=== PATIENT | male | born 1945 | race African-American/Black ===

== ENCOUNTER 2018-10-22 12:46 | Inpatient (IN) | payer MEDICARE, MEDICAID ==
[~2018-10-22] VITALS: Ht 175.3 cm; Wt 79.4 kg
[2018-10-22 14:16] LABS: HEMATOCRIT. 46.1 % (42.0-52.0); MEAN CORPUSCULAR HEMOGLOBIN 30.1 pg (28.0-32.0); MEAN CORPUSCULAR VOLUME 92.4 fL (80.0-94.0); MEAN PLATELET VOLUME 10.1 fl (7.4-10.4); PLATELET 179 x1000/uL (130-400); RED BLOOD CELL COUNT 4.98 mill/uL (4.7-6.1)
[2018-10-22 14:24] LABS: CHLORIDE 104 mEq/L (98-107)
[2018-10-22 14:42] LABS: PLATELET ESTIMATE NORMAL
[2018-10-22] MEDS ORDERED: MAGNESIUM/ALUMINUM HYDROXIDE/SIMETHICONE 30ML UDC PO PRN (19:00)
[2018-10-22] MEDS ORDERED: GUAIFENESIN 200MG/10ML SUGAR FREE UDC PO PRN (19:00)
[2018-10-22] MEDS ORDERED: IPRATROPIUM/ALBUTEROL 0.5-3(2.5)MG/3ML NEB HHN PRN (19:00)
[2018-10-22] MEDS ORDERED: MAGNESIUM HYDROXIDE 400MG/5ML 30ML UDC PO PRN (19:00)
[2018-10-22] MEDS ORDERED: ONDANSETRON HCL 4MG/2ML INJ IV PRN (19:00)
[2018-10-22] MEDS ORDERED: ACETAMINOPHEN 325MG TABLET PO PRN (19:00)
[2018-10-22] MEDS ORDERED: DIPHENHYDRAMINE 50MG/ML VIAL IV PRN (19:00)
[2018-10-22] MEDS: ACETAMINOPHEN WITH CODEINE 300/30MG TABLET PO PRN (21:40)
[2018-10-22 22:48] VITALS: BP 145/95
[2018-10-22] MEDS: CARVEDILOL 6.25 MG TABLET PO SCH (23:32)
[2018-10-22] MEDS: TRAZODONE HCL 50MG TABLET PO SCH (23:32)
[2018-10-22] MEDS: FAMOTIDINE 20MG TABLET PO SCH (23:32)
[2018-10-22] MEDS: ENOXAPARIN 80MG/0.8ML SYR SUBCUT SCH (23:32)
[2018-10-22] MEDS: SODIUM CHLORIDE 0.9% INJ 3ML FLUSH IVF SCH (23:33)
[2018-10-23] VITALS: BP 138/79
[2018-10-23 04:00] VITALS: BP 120/84
[2018-10-23] MEDS: ACETAMINOPHEN WITH CODEINE 300/30MG TABLET PO PRN ×3 (04:36→18:21)
[2018-10-23] MEDS: SODIUM CHLORIDE 0.9% INJ 3ML FLUSH IVF SCH ×3 (06:35→21:58)
[2018-10-23 06:49] LABS: HEMATOCRIT. 45.4 % (42.0-52.0); MEAN CORPUSCULAR HEMOGLOBIN 29.9 pg (28.0-32.0); MEAN CORPUSCULAR VOLUME 90.7 fL (80.0-94.0); MEAN PLATELET VOLUME 10.8 fl (7.4-10.4); PLATELET 175 x1000/uL (130-400); RED BLOOD CELL COUNT 5.01 mill/uL (4.7-6.1); RED CELL DISTRIBUTION WIDTH 15.9 % (11.6-14.6)
[2018-10-23 06:55] LABS: CHLORIDE 103 mEq/L (98-107)
[2018-10-23 07:32] LABS: LDL CHOLESTEROL 49 mg/dL (5-100)
[2018-10-23 07:34] LABS: HDL CHOLESTEROL 65 mg/dL (40-59)
[2018-10-23 08:00] VITALS: BP_SYST 120; BP_DIAS 77; BP_DIAS 84
[2018-10-23] MEDS: POTASSIUM CHLORIDE 10MEQ TABLET SR PO SCH (10:46)
[2018-10-23] MEDS: LOSARTAN POTASSIUM 50 MG TABLET PO SCH (10:47)
[2018-10-23] MEDS: COLCHICINE 0.6MG TABLET PO SCH (10:47)
[2018-10-23] MEDS: CARVEDILOL 6.25 MG TABLET PO SCH ×2 (10:47→20:45)
[2018-10-23] MEDS: DOCUSATE SODIUM 100MG CAPSULE PO SCH ×2 (10:49→18:22)
[2018-10-23] MEDS: FUROSEMIDE 40MG/4ML VIAL IVP SCH (10:49)
[2018-10-23 12:00] VITALS: BP 119/69
[2018-10-23] MEDS ORDERED: MAGNESIUM 4 G PREMIX 100 ML IV ONE (12:00)
[2018-10-23] MEDS: ENOXAPARIN 80MG/0.8ML SYR SUBCUT SCH (12:00)
[2018-10-23 12:32] LABS: PHOSPHORUS 2.8 mg/dL (2.5-4.9)
[2018-10-23 13:06] LABS: PLATELET ESTIMATE NORMAL
[2018-10-23 16:30] VITALS: BP 113/69
[2018-10-23] MEDS ORDERED: REGADENOSON 0.4 MG/5 ML IV NR (16:30)
[2018-10-23 20:00] VITALS: BP 117/82
[2018-10-23] MEDS: FAMOTIDINE 20MG TABLET PO SCH (20:45)
[2018-10-23] MEDS: TRAZODONE HCL 50MG TABLET PO SCH (20:45)
[2018-10-24] VITALS (7 sets, daily range): BP systolic 103–149; BP diastolic 59–82
[2018-10-24] MEDS: ENOXAPARIN 80MG/0.8ML SYR SUBCUT SCH ×2 (00:35→12:55)
[2018-10-24 05:55] LABS: INR 1.2; PROTHROMBIN TIME 12.3 sec (9.6-11.0)
[2018-10-24] MEDS: SODIUM CHLORIDE 0.9% INJ 3ML FLUSH IVF SCH ×3 (06:09→21:55)
[2018-10-24 06:15] LABS: CHLORIDE 102 mEq/L (98-107)
[2018-10-24] MEDS ORDERED: REGADENOSON 0.4 MG/5 ML IV ONE (09:58)
[2018-10-24] MEDS ORDERED: MAGNESIUM 4 G PREMIX 100 ML IV SCH (11:00)
[2018-10-24] MEDS: DOCUSATE SODIUM 100MG CAPSULE PO SCH ×2 (11:59→17:00)
[2018-10-24] MEDS: CARVEDILOL 6.25 MG TABLET PO SCH ×2 (11:59→21:00)
[2018-10-24] MEDS: LOSARTAN POTASSIUM 50 MG TABLET PO SCH (11:59)
[2018-10-24] MEDS: POTASSIUM CHLORIDE 10MEQ TABLET SR PO SCH (11:59)
[2018-10-24] MEDS: FUROSEMIDE 40MG/4ML VIAL IVP SCH (12:00)
[2018-10-24] MEDS: ACETAMINOPHEN WITH CODEINE 300/30MG TABLET PO PRN ×2 (13:03→21:54)
[2018-10-24] MEDS ORDERED: METOLAZONE 10MG TABLET PO SCH (14:00)
[2018-10-24] MEDS: COLCHICINE 0.6MG TABLET PO SCH (15:46)
[2018-10-24] MEDS: FAMOTIDINE 20MG TABLET PO SCH (21:54)
[2018-10-24] MEDS: TRAZODONE HCL 50MG TABLET PO SCH (21:54)
[2018-10-25] VITALS (7 sets, daily range): BP systolic 98–125; BP diastolic 52–90
[2018-10-25] MEDS: ENOXAPARIN 80MG/0.8ML SYR SUBCUT SCH ×2 (00:15→11:37)
[2018-10-25 06:31] LABS: CHLORIDE 101 mEq/L (98-107)
[2018-10-25] MEDS: SODIUM CHLORIDE 0.9% INJ 3ML FLUSH IVF SCH ×2 (06:35→13:02)
[2018-10-25] MEDS: LOSARTAN POTASSIUM 50 MG TABLET PO SCH (09:00)
[2018-10-25] MEDS: DOCUSATE SODIUM 100MG CAPSULE PO SCH ×2 (09:00→16:38)
[2018-10-25] MEDS: COLCHICINE 0.6MG TABLET PO SCH (09:00)
[2018-10-25] MEDS: CARVEDILOL 6.25 MG TABLET PO SCH (09:00)
[2018-10-25] MEDS: POTASSIUM CHLORIDE 10MEQ TABLET SR PO SCH (09:29)
[2018-10-25] MEDS: FUROSEMIDE 40MG/4ML VIAL IVP SCH (09:29)
[2018-10-25] MEDS: ACETAMINOPHEN WITH CODEINE 300/30MG TABLET PO PRN (09:41)
== END 2018-10-25 17:21 | disposition home or self-care (01) | DRG 201 ==
LOC: ER 12:46 → 8WST 16:40 → EDBEDREQ 16:42 → EDBEDREQTM 16:42 → ENRESERV 19:33 → 8WST 10-24 22:00
PROVIDERS: ADMIT Internal Medicine; ATTEND Internal Medicine
DX: I48.91 Unspecified atrial fibrillation (principal); I50.43 Acute on chronic combined systolic (congestive) and diastolic (congestive) heart failure; E83.42 Hypomagnesemia; I42.0 Dilated cardiomyopathy; E78.00 Pure hypercholesterolemia, unspecified; K40.20 Bilateral inguinal hernia, without obstruction or gangrene, not specified as recurrent; M10.9 Gout, unspecified; I11.0 Hypertensive heart disease with heart failure; Z87.891 Personal history of nicotine dependence; Z83.3 Family history of diabetes mellitus
CPT/HCPCS: 36415; 71045; 78452; 80048; 80061; 83036; 83735; 83880; 84100; 84443; 84484; 93005; 93017; 93306; 93970; 99285; A9500; J1650; J1940; J2785; J3475